=== PATIENT | female | born 1990 | race Caucasian/White ===

== ENCOUNTER 2024-12-23 11:28 | Emergency (ER) | payer OTHER, SELFPAY ==
[2024-12-23 11:31] VITALS: BP 132/91
--- NOTE | 2024-12-23 11:40 | ED.GENMED ---
History of Present Illness
General
Chief Complaint: Anxiety
Time Seen by Provider: 12/23/24 11:39
History of Present Illness
History of Present Illness:
34-year-old female presents to the emergency department for evaluation of depression and anxiety. She reports that she has feelings that she does not want to wake up in the morning. States that several weeks ago she was diagnosed by her [employer]ISTR[facility]
with PMDD however does not agree with this diagnosis. She was given Ativan to use on an as-needed basis but does not feel that is helping at this point. She denies hallucinations or homicidal ideation. No active suicidal ideation or plan. She
has had generally poor appetite and intake for the past week and has loss of interest in her typical daily activities. No illicit substance use.
Past History
Past History
ED Past Medical History: None
ED Past Surgical History: None
Review of Systems
Review of Systems
Allergies reviewed?: Yes
All Other Systems: ROS reviewed and negative except as documented in HPI and ROS
Phy Exam
Physical Exam
Physical Exam:
GEN: Well appearing, NAD, WDWN
HEENT: Oral mucosa moist, no scleral icterus
Cardiac: Mildly tachycardic, regular
Lung: No respiratory distress, no tachypnea
MSK: No gross deformity or injuries
Skin: Good color, no pallor or jaundice, no rashes
Neuro: AO x3, moves all extremities freely
Psych: Calm, cooperative
Course
Orders/Labs/Results
Orders:
Orders
12/23/24 11:40
Crisis Consult Urgent
Reason for Consult: anxiety/depression
12/23/24 12:18
Complete Blood Count/With Diff Urgent
Comprehensive Metabolic Panel Urgent
TSH Reflex To Free T4 Urgent
Comment: ADD ON
12/23/24 13:25
Add On- LAB Urgent
Tests Added?: TSH w reflex
Abnormal Lab Results
12/23/24
12:18
MCHC 32.6 L g/dL
(33.0-37.0)
Absolute Lymphs (auto) 1.1 L 10^3/uL
(1.2-3.4)
Neutrophils % 78.1 H %
(42.2-75.2)
Lymphocytes % 15.0 L %
(20.5-51.1)
Glucose 103 H mg/dl
(70-99)
Total Protein 8.7 H g/dl
(6.3-8.2)
Albumin 5.5 H g/dl
(3.5-5.0)
12/23/24 12:18
12/23/24 12:18
Vital Signs
Initial and Last Documented VS:
Initial Vital Signs
Temp Pulse Resp BP Pulse Ox
98.2 F 115 20 132/91 97
12/23/24 11:31 12/23/24 11:31 12/23/24 11:31 12/23/24 11:31 12/23/24 11:31
Last Documented Vital Signs
Temp Pulse Resp BP Pulse Ox
98.2 F 99 20 121/85 99
12/23/24 11:31 12/23/24 12:43 12/23/24 12:43 12/23/24 12:43 12/23/24 12:43
MDM/Problems Addressed
MDM/Problems Addressed:
Patient was seen by crisis however declined crisis resources at this time. Her labs are reassuring. No evidence of significant nutritional deficiencies. She is encouraged to follow-up with her primary care physician as well as outpatient
counseling and/or psychiatry to discuss further management of her ongoing issues
*Critical Care Note
Total Time (30-74mins, 75-104mins- exclusive of procedures): Not Applicable
ED Attending Note
-
Portions of this chart may have been created with voice recognition software.� Occasional wrong word or��sound alike� substitutions may have occurred due to the inherent limitations of voice recognition software.
Discharge Plan
Departure
Patient Disposition: Home (Routine Discharge)
Date of Disposition: 12/23/24
Time of Disposition: 13:26
Patient with high blood pressure during this ER visit?: No
Discharge Problem:
Anxiety
Instructions: Anxiety, Adult (DC)
Prescriptions:
No Action
ferrous sulfate [iron] 325 MG tablet
325 mg PO BID
Multivitamin Tablet Tablet
1 tab PO DAILY
acetaminophen 325 MG tablet
650 mg PO Q4HPRN PRN (Reason: mild pain) 0RF
ibuprofen 200 MG/10 ML suspension
600 mg PO Q4HPRN PRN (Reason: moderate pain/cramps) 0RF
Referrals:
Ralph Bartholomew DO [Family Provider] -
Activity Restrictions/Additional Instructions:
Follow-up with your primary care physician for further workup
Your thyroid hormone test will result at some point later today
Interventions
Interventions:
*Risk Screen - Suicide Last Done: 12/23/24 11:30
*General Assessment Last Done: 12/23/24 11:31
*Neglect/Abuse Screening Last Done: 12/23/24 11:31
*Nursing Disposition Last Done: 12/23/24 14:33
ED-Psychological Assessment Last Done: 12/23/24 12:48
Discharge Date and Time
Discharge Date/Time: 12/23/24 14:00
Print Language: BHUTANESE
[2024-12-23 12:43] VITALS: BP 121/85
[2024-12-23 12:45] LABS: % Basophils 0.3 % (0-2); % Eosinophils 0.6 % (0-6); % Immature Granulocytes 0.3 % (0-0.5); % Monocytes 5.7 % (1.7-9.3); % Neutrophils 78.1 % (42.2-75.2); Absolute Lymphocytes 1.1 10^3/uL (1.2-3.4); Absolute Monocytes 0.4 10^3/uL (0.1-0.6); Absolute Neutrophils 5.6 10^3/uL (1.4-6.5); Hematocrit 38.4 % (37.0-47.0); Hemoglobin 12.5 g/dL (12.0-16.0); Mean Corp Hgb Conc. 32.6 g/dL (33.0-37.0); Mean Corpuscular Hgb 27.9 pg (27.0-31.0); Mean Corpuscular Volume 85.7 fL (81.0-99.0); Mean Platelet Volume 8.9 fL (7.4-10.4); Nucleated Red Blood Cells % 0 %; Platelet Count 287 10^3/uL (130-400); Red Blood Cell Count 4.48 10^6/uL (4.20-5.40); Red Cell Dist. Width 13.7 % (11.5-14.5); White Blood Cell Count 7.2 10^3/uL (4.8-10.8)
[2024-12-23 12:55] LABS: ALT (SGPT) 17 U/L (0-35); AST (SGOT) 27 U/L (14-36); Albumin 5.5 g/dl (3.5-5.0); Alkaline Phosphatase 45 U/L (38-126); Blood Urea Nitrogen 12 mg/dl (7-17); Calcium 9.7 mg/dl (8.4-10.2); Carbon Dioxide 27 mmol/L (22-30); Chloride 98 mmol/L (98-107); Glucose 103 mg/dl (70-99); Potassium 4.3 mmol/L (3.5-5.1); Sodium 137 mmol/L (135-145); Total Bilirubin 0.8 mg/dl (0.2-1.3); Total Protein 8.7 g/dl (6.3-8.2); eGFR > 60.00
[2024-12-23 15:11] LABS: TSH Reflex To Free T4 0.82 uIU/ml (0.47-4.68)
== END 2024-12-23 14:00 | disposition home or self-care (01) ==
LOC: EMR 11:28
PROVIDERS: Physician Assistant; EMERGENCY PHYSICIAN Emergency Medicine; FAMILY PHYSICIAN Family Medicine
DX: F41.9 Anxiety disorder, unspecified (principal); F32.A Depression, unspecified
CPT/HCPCS: 99283; 80053; 84443; 85025